=== PATIENT | male | born 1985 | race Two or more races ===

== ENCOUNTER → 2024-11-13 | Emergency (ER) | payer OTHER ==
[~2024-11-13] VITALS: Ht 170.2 cm; Wt 75.0 kg
[2024-11-13 23:32] VITALS: BP 123/66; PULSE 79; RESP 19; TEMP 97.9; O2SAT 98
[2024-11-14] MEDS: IBUPROFEN 400 MG TABLET PO ONE (00:08)
[2024-11-14] MEDS: ACETAMINOPHEN 500 MG TABLET PO ONE (00:08)
== END ==
LOC: EMS 21:46
DX: S63.601A Unspecified sprain of right thumb, initial encounter (principal); W21.05XA Struck by basketball, initial encounter; Y93.67 Activity, basketball; Y92.89 Other specified places as the place of occurrence of the external cause; Y99.8 Other external cause status
CPT/HCPCS: 99283